=== PATIENT | female | born 1950 | race Caucasian/White ===

== ENCOUNTER → 2018-05-25 | Outpatient (CLI) | payer BC ==
[~2018-05-25] MED LIST: BACTRIM,SEPT1 TABLET PO; CHERATUSSIN AC473 ML PO; DAILY VALUE1 EACH PO; DIABETES MEDICATION PO; DICYCLOMINE HCL20 MG PO; FARXIGA10 MG PO; JANUMET XR 50-1 EAC1 PO; JENTADUETO 2.51 EAC2 PO; LO-DOSE ASPIRIN81 M1 PO
== END | disposition home or self-care (01) ==
LOC: CDC 14:31
DX: Z01.810 Encounter for preprocedural cardiovascular examination (principal); M54.2 Cervicalgia; M54.12 Radiculopathy, cervical region; M48.02 Spinal stenosis, cervical region; R29.898 Other symptoms and signs involving the musculoskeletal system; I44.4 Left anterior fascicular block; R94.31 Abnormal electrocardiogram [ECG] [EKG]
CPT/HCPCS: 93000